=== PATIENT | female | born 1975 | race Caucasian/White ===

== ENCOUNTER 2021-01-02 10:37 | Emergency (ER) | payer BC ==
[2021-01-02] MEDS ORDERED: Sodium Chloride 0.9% 1,000 ML IV ONE (11:27)
[2021-01-02] MEDS ORDERED: Sodium Chloride 0.9% 10 ML Syringe FLUSH PRN (11:27)
[2021-01-02] MEDS ORDERED: Sodium Chloride 0.9% 2.5 ML Syringe FLUSH PRN (11:27)
[2021-01-02] MEDS ORDERED: Ketorolac 30 MG/ML SDV IVPUSH ONE (11:47)
[2021-01-02] MEDS ORDERED: Ondansetron 4 MG/2 ML SDV IVPUSH ONE (11:47)
[2021-01-02 12:06] LABS: BLOOD UREA NITROGEN,BUN 12 mg/dL (7.0-18.0); CARBON DIOXIDE,CO2 26.4 mmol/L (21.0-32.0); CHLORIDE,CL 100 mmol/L (98-107); GLUCOSE RANDOM 112 mg/dL (74-106); LIPASE 47 U/L (73-393); POTASSIUM,K 3.1 mmol/L (3.5-5.1); SODIUM,NA 141 mmol/L (136-145)
--- NOTE | 2021-01-02 12:20 | EDM.PDOC ---
ED HPI GENERAL MEDICAL PROBLEM - General Chief Complaint: Flank Pain Stated Complaint: PAIN ON RT SIDE AND BACK Time Seen by Provider: 01/02/21 11:15 Source of Information: Reports: Patient History Limitations: Reports: No Limitations - History of Present Illness INITIAL COMMENTS - FREE TEXT/NARRATIVE: HISTORY AND PHYSICAL: History of present illness: Patient is a 45-year-old female who presents to the ED today with concern of sudden onset of sided right flank pain approximately 1 hour prior to arrival to the emergency room. Patient also notes that she feels like she has to go to the bathroom frequently but feels a pressure and only a small amount of fluid comes out. Patient states that she has been told that she has stones up in her kidneys and thought that 1 might be passing. Patient states that she has associated nausea but has not vomited. Patient states that she has had her gallbladder removed and a partial hysterectomy with her ovaries remaining and denies any other abdominal surgeries. Patient states she has a history of hypertension and hyperlipidemia but denies any other health history. Patient states that she has not taken anything for her symptoms. Patient denies fever, chills, chest pain, shortness of breath, or cough. Denies headache, neck stiff ness, change in vision, syncope, or near syncope. Denies vomiting, diarrhea, constipation, or dysuria. Has not noted any blood in urine or stool. Patient has been eating and drinking appropriately prior to onset of symptoms. Review of systems: As per history of present illness and below otherwise all systems reviewed and negative. Past medical history: As per history of present illness and as reviewed below otherwise noncontributory. Surgical history: As per history of present illness and as reviewed below otherwise noncontributory. Social history: See social history for further information Family history: As per history of present illness and as reviewed below otherwise nonc ontributory. Physical exam: General: Patient is alert, oriented, and in no acute distress. Patient sitting on exam table, holding RLQ and appearing uncomfortable. Patiently is mildly tachycardic 105 on exam, otherwise vitally stable and reviewed by me. HEENT: Atraumatic, normocephalic, pupils equal and reactive bilaterally, negative for conjunctival pallor or scleral icterus, mucous membranes moist, TMs normal bilaterally, throat clear, neck supple, nontender, trachea midline. No drooling or trismus noted. No meningeal signs. No hot potato voice noted. Lungs: Clear to auscultation, breath sounds equal bilaterally, chest nontender. Heart: S1S2, regular rate and rhythm without overt murmur Abdomen: Soft, nondistended, RLQ tenderness without guarding, negative rebound. Negative for masses or hepatosplenomegaly. Positive for costovertebral tenderness of the right. Pelvis: Stable nontender. Genitourinary: Deferred. Rectal: Deferred. Skin: Intact, warm, dry. No lesions or rashes noted. Extremities: Atraumatic, negative for cords or calf pain. Neurovascular unremarkable. Neuro: Awake, alert, oriented. Cranial nerves II through XII unremarkable. Cerebellum unremarkable. Motor and sensory unremarkable throughout. Exam nonfocal. Notes: Patient is a 45-year-old female who presents to the ED today with concern of sudden onset of right flank pain and frequent urination that started just 1 hour prior to arrival to the emergency room. Upon arrival to the ED, patient is mildly tachycardic 105 otherwise vitally stable on exam. Patient is uncomfortable holding her right sided abdomen with CVA tenderness i of the right and right lower quadrant pain. Will obtain basic lab work as well as abdominal pelvic CT scan CBC is unremarkable. CMP shows mild hypokalemia at 3.1. Otherwise, mild derangements of CMP unremarkable. Lipase within normal limits. Urinalysis shows 0-2 red blood cells, 0-1 white blood cells, nitrite negative, leukocyte Estrace negative, hCG negative, 1+ bacteria with epithelial cells noted without sign of infection. We will culture urine. Abdominal pelvic CT scan without contrast shows mild right hydronephrosis with no obstructing calculi noted. Correlate with recently passed stone. 3.5 cm low attenuated lesion involving the right lobe of the liver. Subcentimeter low- attenuation left lobe of the liver. Correlate with hepatic ultrasound on nonemergent basis. Colonic fecal retention involving the ascending colon. Cholecystectomy. Appendix is normal. All incidental findings of imaging and lab work today discussed with patient and has this followed up with a primary care provider. Patient was given a potassium tab today in the ED. Upon reevaluation of patient, she has returning right-sided flank pain. Patient's heart rate has normalized to 80 bpm on my reevaluation of patient and patient remains vitally stable. Patient given dose of Dilaudid and will reassess patient Upon reevaluation of patient after Dilaudid, she is much more comfortable with resolution of her symptoms today in the ED. Strict return precautions thoroughly discussed with patient. Discussed importance for follow-up with a urologist and primary care provider. Voices understanding and is agreeable to plan of care. Denies any further questions or concerns at this time. Diagnostics: CBC, CMP, UA, Uhcg, Lipase, Abd/Pelvic ct w/o cont, urine culture Therapeutics: NS, Toradol, Zofran, Dilaudid, Potassium Prescription: Percocet 5/325 (#10), Zofran Impression: Ureterolithiasis, right Hypokalemia, mild Constipation Plan: 1. Take medication as prescribed. You can also take ibuprofen and Tylenol as directed for pain and discomfort. Caution as the medication that you were given also has Tylenol in this, so be careful about dosing of Tylenol. Use the Tylenol bottle as directed for dosing instructions. 2. Follow-up with a primary care provider and urologist as discussed. Return to the ED as needed and as discussed. 3. Use the urine strainer as discussed. Definitive disposition and diagnosis as appropriate pending reevaluation and review of above. right flank/abdomen Pain Score (Numeric/FACES): 8 - Related Data Allergies Allergy/AdvReac Type Severity Reaction Status Date / Time morphine Allergy Hallucinati Verified 01/02/21 11:14 ons norco Allergy Vomiting Uncoded 01/10/17 08:53 MDT Home Meds: Home Meds Acetaminophen with Codeine [Tylenol with Codeine #4 Tablet] 1 each PO BID PRN 01/10/17 [History] Cyclobenzaprine [Flexeril] 10 mg PO BID PRN 01/10/17 [History] SUMAtriptan succinate [Imitrex] 100 mg PO DAILY PRN 01/10/17 [History] Acetaminophen/oxyCODONE [Percocet 325-5 MG] 1 each PO Q6HR PRN #10 tab 01/02/21 [Rx] Ondansetron [Zofran ODT] 4 mg PO Q6H PRN #8 tab.dis 01/02/21 [Rx] Tamsulosin HCl [Flomax] 0.4 mg PO DAILY #5 cap.er.24h 01/02/21 [Rx] Past Medical History [employer] History: Reports: Neurological History: Reports: Migraines - Infectious Disease History Infectious Disease History: Reports: None - Past Surgical History Other Cardiovascular Surgeries/Procedures: heart surgery in [place] [facility] Surgical History: Reports: Cholecystectomy Social & Family History - Tobacco Use Tobacco Use Status *Q: Never Tobacco User - Caffeine Use Caffeine Use: Reports: None - Recreational Drug Use Recreational Drug Use: No ED ROS GENERAL - Review of Systems Review Of Systems: Comprehensive ROS is negative, except as noted in HPI. ED EXAM, GENERAL - Physical Exam Exam: See Below (see dictation) Course - Vital Signs Last Recorded V/S: Last Vital Signs Temp 95.6 F L 01/02/21 11:15 Pulse 105 H 01/02/21 11:15 Resp 20 01/02/21 11:15 BP 155/104 H 01/02/21 11:15 Pulse Ox 97 01/02/21 11:15 - Orders/Labs/Meds Orders: Active Orders 24 hr Category Date Time Status Sodium Chloride 0.9% [Saline Flush] Med 01/02/21 11:27 Active 10 ml FLUSH ASDIRECTED PRN Sodium Chloride 0.9% [Saline Flush] Med 01/02/21 11:27 Active 2.5 ml FLUSH ASDIRECTED PRN Saline Lock Insert [OM.PC] Stat Oth 01/02/21 11:27 Ordered Medication Orders Sodium Chloride (Sodium Chloride 0.9% 10 Ml Syringe) 10 ml FLUSH ASDIRECTED PRN PRN Reason: Keep Vein Open Last Admin: 01/02/21 11:37 Dose: 10 ml Documented by: SAMSON Sodium Chloride (Sodium Chloride 0.9% 2.5 Ml Syringe) 2.5 ml FLUSH ASDIRECTED PRN PRN Reason: Keep Vein Open Last Admin: 01/02/21 11:37 Dose: 2.5 ml Documented by: SAMSON Labs: Laboratory Tests 01/02/21 01/02/21 01/02/21 Range/Units 11:27 11:27 11:38 WBC 8.11 (4.0-11.0) K/uL RBC 4.80 (4.30-5.90) M/uL Hgb 13.4 (12.0-16.0) g/dL Hct 39.5 (36.0-46.0) % MCV 82.3 (80.0-98.0) fL MCH 27.9 (27.0-32.0) pg MCHC 33.9 (31.0-37.0) g/dL RDW Std Deviation 43.0 (28.0-62.0) fl RDW Coeff of Sharath 14 (11.0-15.0) % Plt Count 376 (150-400) K/uL MPV 9.50 (7.40-12.00) fL Neut % (Auto) 66.0 (48.0-80.0) % Lymph % (Auto) 25.9 (16.0-40.0) % Toole % (Auto) 6.9 (0.0-15.0) % Eos % (Auto) 1.0 (0.0-7.0) % Baso % (Auto) 0.2 (0.0-1.5) % Neut # (Auto) 5.4 (1.4-5.7) K/uL Lymph # (Auto) 2.1 (0.6-2.4) K/uL Toole # (Auto) 0.6 (0.0-0.8) K/uL Eos # (Auto) 0.1 (0.0-0.7) K/uL Baso # (Auto) 0.0 (0.0-0.1) K/uL Nucleated RBC % 0.0 /100WBC Nucleated RBCs # 0 K/uL Sodium (136-145) mmol/L Potassium (3.5-5.1) mmol/L Chloride (98-107) mmol/L Carbon Dioxide (21.0-32.0) mmol/L BUN (7.0-18.0) mg/dL Creatinine (0.6-1.0) mg/dL Est Cr Clr Drug Dosing mL/min Estimated GFR (MDRD) ml/min Glucose (74-106) mg/dL Calcium (8.5-10.1) mg/dL Total Bilirubin (0.2-1.0) mg/dL AST (15-37) IU/L ALT (14-63) IU/L Alkaline Phosphatase (46-116) U/L Total Protein (6.4-8.2) g/dL Albumin (3.4-5.0) g/dL Globulin (2.6-4.0) g/dL Albumin/Globulin Ratio (0.9-1.6) Lipase (73-393) U/L Urine Color YELLOW Urine Appearance HAZY Urine pH 6.0 (5.0-8.0) Ur Specific [place] 1.015 (1.001-1.035) Urine Protein NEGATIVE (NEGATIVE) mg/dL Urine Glucose (UA) NEGATIVE (NEGATIVE) mg/dL Urine Ketones NEGATIVE (NEGATIVE) mg/dL Urine Occult Blood SMALL H (NEGATIVE) Urine Nitrite NEGATIVE (NEGATIVE) Urine Bilirubin NEGATIVE (NEGATIVE) Urine Urobilinogen 0.2 (<2.0) EU/dL Ur Leukocyte Esterase NEGATIVE (NEGATIVE) Urine RBC 0-2 (0-2/HPF) Urine WBC 0-1 (0-5/HPF) Ur Epithelial Cells FEW (NONE-FEW) Urine Bacteria 1+ H (NEGATIVE) Urine HCG, Qual NEGATIVE (NEGATIVE) 01/02/21 Range/Units 11:38 WBC (4.0-11.0) K/uL RBC (4.30-5.90) M/uL Hgb (12.0-16.0) g/dL Hct (36.0-46.0) % MCV (80.0-98.0) fL MCH (27.0-32.0) pg MCHC (31.0-37.0) g/dL RDW Std Deviation (28.0-62.0) fl RDW Coeff of Sharath (11.0-15.0) % Plt Count (150-400) K/uL MPV (7.40-12.00) fL Neut % (Auto) (48.0-80.0) % Lymph % (Auto) (16.0-40.0) % Toole % (Auto) (0.0-15.0) % Eos % (Auto) (0.0-7.0) % Baso % (Auto) (0.0-1.5) % Neut # (Auto) (1.4-5.7) K/uL Lymph # (Auto) (0.6-2.4) K/uL Toole # (Auto) (0.0-0.8) K/uL Eos # (Auto) (0.0-0.7) K/uL Baso # (Auto) (0.0-0.1) K/uL Nucleated RBC % /100WBC Nucleated RBCs # K/uL Sodium 141 (136-145) mmol/L Potassium 3.1 L (3.5-5.1) mmol/L Chloride 100 (98-107) mmol/L Carbon Dioxide 26.4 (21.0-32.0) mmol/L BUN 12 (7.0-18.0) mg/dL Creatinine 0.8 (0.6-1.0) mg/dL Est Cr Clr Drug Dosing 67.01 mL/min Estimated GFR (MDRD) > 60.0 ml/min Glucose 112 H (74-106) mg/dL Calcium 9.5 (8.5-10.1) mg/dL Total Bilirubin 0.3 (0.2-1.0) mg/dL AST 13 L (15-37) IU/L ALT 12 L (14-63) IU/L Alkaline Phosphatase 95 (46-116) U/L Total Protein 7.5 (6.4-8.2) g/dL Albumin 3.3 L (3.4-5.0) g/dL Globulin 4.2 H (2.6-4.0) g/dL Albumin/Globulin Ratio 0.8 L (0.9-1.6) Lipase 47 L (73-393) U/L Urine Color Urine Appearance Urine pH (5.0-8.0) Ur Specific [place] (1.001-1.035) Urine Protein (NEGATIVE) mg/dL Urine Glucose (UA) (NEGATIVE) mg/dL Urine Ketones (NEGATIVE) mg/dL Urine Occult Blood (NEGATIVE) Urine Nitrite (NEGATIVE) Urine Bilirubin (NEGATIVE) Urine Urobilinogen (<2.0) EU/dL Ur Leukocyte Esterase (NEGATIVE) Urine RBC (0-2/HPF) Urine WBC (0-5/HPF) Ur Epithelial Cells (NONE-FEW) Urine Bacteria (NEGATIVE) Urine HCG, Qual (NEGATIVE) Meds: Medications Generic Name Dose Route Start Last Admin Trade Name Freq PRN Reason Stop Dose Admin Sodium Chloride 10 ml 01/02/21 11:27 01/02/21 11:37 Sodium Chloride 0.9% 10 Ml Syringe FLUSH 10 ml ASDIRECTED PRN Administration Keep Vein Open Sodium Chloride 2.5 ml 01/02/21 11:27 01/02/21 11:37 Sodium Chloride 0.9% 2.5 Ml Syringe FLUSH 2.5 ml ASDIRECTED PRN Administration Keep Vein Open Discontinued Medications Generic Name Dose Route Start Last Admin Trade Name Ann PRN Reason Stop Dose Admin Hydromorphone HCl 0.5 mg 01/02/21 14:09 01/02/21 14:32 Hydromorphone 2 Mg/Ml Syringe IVPUSH 01/02/21 14:10 0.5 mg ONETIME ONE Administration Sodium Chloride 1,000 mls @ 999 mls/hr 01/02/21 11:27 01/02/21 11:36 Normal Saline IV 01/02/21 12:27 999 mls/hr BOLUS ONE Administration Ketorolac Tromethamine 30 mg 01/02/21 11:47 01/02/21 12:07 Ketorolac 30 Mg/Ml Sdv IVPUSH 01/02/21 11:48 30 mg ONETIME ONE Administration Ondansetron HCl 4 mg 01/02/21 11:47 01/02/21 12:07 Ondansetron 4 Mg/2 Ml Sdv IVPUSH 01/02/21 11:48 4 mg ONETIME ONE Administration Departure - Departure Time of Disposition: 15:01 Disposition: Home, Self-Care 01 Clinical Impression: Ureterolithiasis, Hypokalemia Constipation Qualifiers: Constipation type: unspecified constipation type Qualified Code(s): K59.00 - Constipation, unspecified - Discharge Information Prescriptions: Acetaminophen/oxyCODONE [Percocet 325-5 MG] 1 each PO Q6HR PRN #10 tab PRN Reason: Pain (Severe 7-10) Ondansetron [Zofran ODT] 4 mg PO Q6H PRN #8 tab.dis PRN Reason: Nausea/Vomiting Referrals: [facility] [employer] [Primary Care Provider] - Forms: ED Department Discharge Additional Instructions: The following information is given to patients seen in the emergency department who are being discharged to home. This information is to outline your options for follow-up care. We provide all patients seen in our emergency department with a follow-up referral. The need for follow-up, as well as the timing and circumstances, are variable depending upon the specifics of your emergency department visit. If you don't have a primary care physician on staff, we will provide you with a referral. We always advise you to contact your personal physician following an emergency department visit to inform them of the circumstance of the visit and for follow-up with them and/or the need for any referrals to a consulting specialist. The emergency department will also refer you to a specialist when appropriate. This referral assures that you have the opportunity for follow-up care with a specialist. All of these measure are taken in an effort to provide you with optimal care, which includes your follow-up. Under all circumstances we always encourage you to contact your private physician who remains a resource for coordinating your care. When calling for follow-up care, please make the office aware that this follow-up is from your recent emergency room visit. If for any reason you are refused follow-up, please contact the [facility] Emergency Department at and asked to speak to the emergency department charge nurse. [facility] [address] [place] [id number] [address] [facility] - U[facility] [address] [place] [id number] 1. Take medication as prescribed. You can also take ibuprofen and Tylenol as directed for pain and discomfort. Caution as the medication that you were given also has Tylenol in this, so be careful about dosing of Tylenol. Use the Tylenol bottle as directed for dosing instructions. 2. Follow-up with a primary care provider and urologist as discussed. Return to the ED as needed and as discussed. 3. Use the urine strainer as discussed. Sepsis Event Note (ED) - Evaluation Sepsis Screening Result: No Definite Risk - Focused Exam Vital Signs: Vital Signs Temp Pulse Resp BP Pulse Ox 01/02/21 11:15 95.6 F L 105 H 20 155/104 H 97 - My Orders Last 24 Hours: My Active Orders 01/02/21 11:27 Sodium Chloride 0.9% [Saline Flush] 10 ml FLUSH ASDIRECTED PRN Sodium Chloride 0.9% [Saline Flush] 2.5 ml FLUSH ASDIRECTED PRN Saline Lock Insert [OM.PC] Stat - Assessment/Plan Last 24 Hours: My Active Orders 01/02/21 11:27 Sodium Chloride 0.9% [Saline Flush] 10 ml FLUSH ASDIRECTED PRN Sodium Chloride 0.9% [Saline Flush] 2.5 ml FLUSH ASDIRECTED PRN Saline Lock Insert [OM.PC] Stat
--- NOTE | 2021-01-02 13:13 | CT ---
INDICATION: Right flank pain TECHNIQUE: CT abdomen and pelvis without contrast. COMPARISON: None FINDINGS: Lower chest: Unremarkable. Liver: 3.5 centimeter low-attenuation lesion involving the right lobe of the liver near the dome. Sub centimeter low attenuation left lobe of the liver. Cholecystectomy. The spleen, adrenal glands, kidneys and pancreas are normal. Spleen: Unremarkable. Pancreas: Unremarkable. Gallbladder and bile ducts: Unremarkable. Kidneys: No calculi. Mild right hydronephrosis. Adrenal glands: Unremarkable. GI tract: Colonic fecal retention from the ascending colon. Normal appendix and small bowel. Sigmoid diverticulosis. Vascular structures: Unremarkable. Lymph nodes: Unremarkable. Miscellaneous: Unremarkable. No free air or significant free fluid. Pelvic Organs: Unremarkable. Bones: Bilateral L5 pars defects with grade 2 anterolisthesis L5 over S1.. IMPRESSION: Mild right hydronephrosis. No obstructing calculi noted. Correlate with recently passed stone. 3.5 centimeter low-attenuation lesion involving the right lobe of the liver. Subcentimeter low attenuation left lobe of the liver. Correlation with hepatic ultrasound on nonemergent basis would be helpful to better characterize. Colonic fecal retention involving the ascending colon. Cholecystectomy. Please note that all CT scans at this facility use dose modulation, iterative reconstruction, and/or weight-based dosing when appropriate to reduce radiation dose to as low as reasonably achievable. Dictated by Abram Grover MD @ 01/02/2021 1:11:[address] Abram Grover @ Jan 02 2021 1:11PM
[2021-01-02] MEDS ORDERED: HYDROmorphone 2 MG/ML Syringe IVPUSH ONE ×2 (14:09→15:13)
[2021-01-02] MEDS ORDERED: Potassium Chloride 20 MEQ Tab.ER PO ONE (15:04)
[2021-01-02 15:42] VITALS: BP 163/101; PULSE 80
--- NOTE | 2021-01-05 19:55 | PCM.SN.2 ---
- Free Text/Narrative Note: I did call and speak to the patient gretel on 01/05/2021 at approximately 19:30 for follow-up from ED visit. Patient still expresses urinary frequency but resolution of flank pain from ED visit. When looking for urine culture results from ED visit, I was notified by lab that they were unable to culture patient's urine due to low volume. I was not notified of their inability to culture the urine while patient was in the ED. Being that I am unable to follow the results from a urine culture, I will send patient in a prescription for Keflex 500 mg 3 times a day for 7 days being she is still having urinary frequency and this was called into [facility] in [place]. Also discussed with patient to establish an appointment follow up with a primary care provider. Expresses understanding and agreeable to plan of care.
== END 2021-01-02 15:30 | disposition home or self-care (01) ==
LOC: MW.ED 10:37
DX: N13.2 Hydronephrosis with renal and ureteral calculous obstruction (principal); E87.6 Hypokalemia; K59.00 Constipation, unspecified; G43.909 Migraine, unspecified, not intractable, without status migrainosus; Z88.5 Allergy status to narcotic agent; Z79.899 Other long term (current) drug therapy
CPT/HCPCS: 36415; 74176; 80053; 81001; 81025; 83690; 85025; 96374; 96375; 96376; 99284; A9270; J1170; J1885; J2405; J7030